=== PATIENT | female | born 1995 | race Caucasian/White ===

== ENCOUNTER 2018-09-03 14:08 | Inpatient (IN) | payer MEDICAID ==
[~2018-09-03] VITALS: Ht 157.5 cm; Wt 64.5 kg
[2018-09-03] MEDS ORDERED: QUET100T PO (14:40)
[2018-09-03] MEDS ORDERED: ZOLP10TA7 PO (14:40)
[2018-09-03] MEDS ORDERED: PALI3 PO (14:40)
[2018-09-03] MEDS ORDERED: BENZ0.5T44 PO (14:40)
[2018-09-03] MEDS ORDERED: LITH300C3 PO (14:40)
[2018-09-03] MEDS ORDERED: LITH300T PO (14:41)
[2018-09-03] MEDS ORDERED: SODIUM CHLORIDE 0.9% 1,000 ML IV ONE (15:45)
[2018-09-03] MEDS ORDERED: LORazepam 2 MG/ML VIAL IVP ONE (15:45)
[2018-09-03 16:04] LABS: BASOPHILS % (AUTO) 0.3 % (0.0-2.0); EOSINOPHILS % (AUTO) 0.4 % (1.0-6.0); HEMATOCRIT 38.1 % (36-46); HEMOGLOBIN 12.8 g/dL (12.0-16.0); LYMPHOCYTES # (AUTO) 1.7 K/uL (1.0-4.8); LYMPHOCYTES % (AUTO) 17.3 % (22.0-44.0); MEAN CORPUSCULAR HEMOGLOBIN 27.4 pg (26.0-34.0); MEAN CORPUSCULAR HGB CONC 33.6 G/dL (31.0-37.0); MEAN CORPUSCULAR VOLUME 82 fL (80-100); MONOCYTES # (AUTO) 0.7 K/uL (0.1-1.0); MONOCYTES % (AUTO) 7.4 % (2.0-9.0); NEUTROPHILS # (AUTO) 7.4 K/uL (1.8-7.7); NEUTROPHILS % (AUTO) 74.6 % (40.0-70.0); PLATELET COUNT (AUTO) 275 K/uL (150-450); RED BLOOD CELL COUNT(AUTO) 4.67 MIL/uL (4.00-5.20)
[2018-09-03 16:10] LABS: ANION GAP 6 mmol/L (8-16); CARBON DIOXIDE 32 mmol/L (22-29); CHLORIDE 104 mmol/L (98-107); CREATININE 0.86 mg/dL (0.60-1.30); GLOMERULAR FILTR. RATE CALC > 60 mL/min (>60); GLUCOSE,RANDOM 85 mg/dL (70-110); POTASSIUM 3.7 mmol/L (3.5-5.1); SODIUM SERUM 142 mmol/L (136-145); UREA NITROGEN, BLOOD 11 mg/dL (7-18)
[2018-09-03 16:25] LABS: ALANINE AMINOTRANSFERASE 26 U/L (12-78); ALBUMIN 4.1 g/dL (3.4-5.0); ALKALINE PHOSPHATASE 72 U/L (46-116); ASPARTATE AMINOTRANSFERASE 17 U/L (15-37); BILIRUBIN,TOTAL 0.2 mg/dL (0.1-1.0); HCG,QUANTITATIVE < 1 mIU/mL (0-6); THYROID STIMULATING HORMONE 1.69 uIU/mL (0.36-3.74); TOTAL PROTEIN, SERUM 7.6 g/dL (6.4-8.2)
[2018-09-03 16:32] LABS: APPEARANCE,URINE CLOUDY (CLEAR); BILIRUBIN,URINE NEGATIVE (NEGATIVE); GLUCOSE, URINE (UA) NEGATIVE (NEGATIVE); KETONES,URINE NEGATIVE (NEGATIVE); LEUKOCYTE ESTERASE ,URINE NEGATIVE (NEGATIVE); NITRATE,URINE NEGATIVE (NEGATIVE); OCCULT BLOOD,URINE NEGATIVE (NEGATIVE); PH,URINE 7.5 (5.0-8.0); PROTEIN,URINE NEGATIVE (NEGATIVE); UROBILINOGEN,URINE 0.2 mg/dL (<=1.0)
[2018-09-03 16:36] LABS: AMPHET/METH SCREEN,URINE NEGATIVE (NEGATIVE); BARBITURATE SCREEN, URINE NEGATIVE (NEGATIVE); BENZODIAZEPINES SCREEN,URINE NEGATIVE (NEGATIVE); CANNABINOID SCREEN,URINE NEGATIVE (NEGATIVE); COCAINE SCREEN,URINE NEGATIVE (NEGATIVE); METHADONE SCREEN, URINE NEGATIVE (NEGATIVE); OPIATE SCREEN,URINE NEGATIVE (NEGATIVE); PHENCYCLIDINE SCREEN,URINE NEGATIVE (NEGATIVE)
[2018-09-03] MEDS ORDERED: ZOLPIDEM TARTRATE 10 MG TABLET PO PRN (17:45)
[2018-09-03] MEDS ORDERED: KETOROLAC TROMETHAMINE 30 MG/ML VIAL IVP ONE (19:00)
[2018-09-03 20:37] VITALS: BP 133/77
[2018-09-03] MEDS: HALOPERIDOL 5 MG TABLET PO PRN (21:00)
[2018-09-03] MEDS: LORazepam 2 MG TABLET PO PRN (21:00)
[2018-09-03] MEDS ORDERED: LOPERAMIDE HCL 2 MG CAPSULE PO PRN (22:30)
[2018-09-03] MEDS ORDERED: NICOTINE 14 MG/24 HOUR PATCH TD PRN (22:30)
[2018-09-03] MEDS ORDERED: DOCUSATE SODIUM 100 MG CAPSULE PO PRN (22:30)
[2018-09-03] MEDS ORDERED: PETROLATUM,WHITE 28 GM JELLY TP PRN (22:30)
[2018-09-03] MEDS ORDERED: ALBUTEROL SULFATE HFA 90 MCG/PUFF 8 GM INHALER IH PRN (22:30)
[2018-09-03] MEDS ORDERED: ONDANSETRON HCL 4 MG TABLET PO PRN (22:30)
[2018-09-03] MEDS ORDERED: IBUPROFEN 400 MG TABLET PO PRN (22:30)
[2018-09-03] MEDS ORDERED: ACETAMINOPHEN 325 MG TABLET PO PRN (22:30)
[2018-09-03] MEDS ORDERED: GuaiFENesin/D-METHORPHAN [SUGAR-FREE] 200-20MG/10 ML SYRUP UDCUP PO PRN (22:30)
[2018-09-03] MEDS ORDERED: MAG HYDROX/AL HYDROX/SIMETH ES 30 ML SUSPENSION UDCUP PO PRN (22:30)
[2018-09-03] MEDS ORDERED: CloNIDine HCL 0.1 MG TABLET PO PRN (22:30)
[2018-09-03] MEDS ORDERED: MAGNESIUM HYDROXIDE SUSPENSION 30 ML UDCUP PO PRN (22:30)
[2018-09-04 06:15] VITALS: BP 114/63
[2018-09-04] MEDS: HALOPERIDOL 5 MG TABLET PO PRN ×2 (08:05→12:10)
[2018-09-04] MEDS: LORazepam 2 MG TABLET PO PRN ×2 (08:05→12:10)
[2018-09-04] MEDS: LITHIUM CARBONATE 300 MG CAPSULE PO SCH ×2 (09:25→17:15)
[2018-09-04 16:00] VITALS: BP 128/75
[2018-09-04] MEDS: QUEtiapine FUMARATE 200 MG TABLET PO SCH (21:17)
[2018-09-05 01:16] VITALS: BP 116/68
[2018-09-05] MEDS: LITHIUM CARBONATE 300 MG CAPSULE PO SCH ×2 (08:17→16:30)
[2018-09-05 08:38] VITALS: BP 114/65
[2018-09-05] MEDS: BENZTROPINE MESYLATE 0.5 MG TABLET PO SCH (09:34)
[2018-09-05] MEDS: PALIPERIDONE 6 MG ER TABLET PO SCH (09:34)
[2018-09-05] MEDS: LORazepam 2 MG TABLET PO PRN (10:53)
[2018-09-05 16:20] VITALS: BP 118/65
[2018-09-05] MEDS: QUEtiapine FUMARATE 200 MG TABLET PO SCH (20:14)
[2018-09-06 00:03] VITALS: BP 100/60
[2018-09-06 08:40] VITALS: BP 128/79
[2018-09-06] MEDS: LORazepam 2 MG TABLET PO PRN (08:48)
[2018-09-06] MEDS: LITHIUM CARBONATE 300 MG CAPSULE PO SCH ×2 (08:48→16:05)
[2018-09-06] MEDS: PALIPERIDONE 6 MG ER TABLET PO SCH (08:51)
[2018-09-06] MEDS: BENZTROPINE MESYLATE 0.5 MG TABLET PO SCH (08:51)
[2018-09-06] MEDS: HALOPERIDOL 5 MG TABLET PO PRN (10:00)
[2018-09-06 16:19] VITALS: BP 131/63
[2018-09-06] MEDS: QUEtiapine FUMARATE 200 MG TABLET PO SCH (20:40)
[2018-09-07 05:58] VITALS: BP 115/75
[2018-09-07 08:20] VITALS: BP 134/63
[2018-09-07] MEDS: LITHIUM CARBONATE 300 MG CAPSULE PO SCH ×2 (08:52→16:02)
[2018-09-07] MEDS: BENZTROPINE MESYLATE 0.5 MG TABLET PO SCH (08:52)
[2018-09-07] MEDS: PALIPERIDONE 6 MG ER TABLET PO SCH (08:52)
[2018-09-07] MEDS: LORazepam 2 MG TABLET PO PRN ×2 (11:51→17:45)
[2018-09-07] MEDS: BENZTROPINE MESYLATE 1 MG TABLET PO SCH ×2 (11:51→16:02)
[2018-09-07 15:35] VITALS: BP 114/66
[2018-09-07] MEDS: QUEtiapine FUMARATE 200 MG TABLET PO SCH (20:24)
[2018-09-08 06:38] VITALS: BP 122/56
[2018-09-08 08:19] VITALS: BP 126/54
[2018-09-08] MEDS: BENZTROPINE MESYLATE 1 MG TABLET PO SCH (08:24)
[2018-09-08] MEDS: LITHIUM CARBONATE 300 MG CAPSULE PO SCH ×2 (08:25→16:21)
[2018-09-08] MEDS: LORazepam 2 MG TABLET PO PRN ×2 (08:25→12:33)
[2018-09-08] MEDS: PALIPERIDONE 6 MG ER TABLET PO SCH (08:27)
[2018-09-08] MEDS: BENZTROPINE MESYLATE 2 MG TABLET PO SCH (16:21)
[2018-09-08 16:24] VITALS: BP 110/67
[2018-09-08] MEDS: QUEtiapine FUMARATE 200 MG TABLET PO SCH (20:31)
[2018-09-09 00:37] VITALS: BP 114/65
[2018-09-09] MEDS: LORazepam 2 MG TABLET PO PRN (08:21)
[2018-09-09] MEDS: LITHIUM CARBONATE 300 MG CAPSULE PO SCH (08:21)
[2018-09-09] MEDS: BENZTROPINE MESYLATE 2 MG TABLET PO SCH (08:21)
[2018-09-09] MEDS: PALIPERIDONE 6 MG ER TABLET PO SCH (08:23)
[2018-09-09 08:26] VITALS: BP 129/74
[2018-09-09] MEDS ORDERED: LITH300C3 PO (11:32)
[2018-09-09] MEDS ORDERED: BENZ2TAB10 PO (11:32)
[2018-09-09] MEDS ORDERED: QUET200T PO (11:32)
[2018-09-09] MEDS ORDERED: PALI6 PO (11:32)
== END 2018-09-09 14:00 | DRG 750 ==
LOC: EMS 14:08 → B3A 18:06
PROVIDERS: ADMIT Psychiatry & Neurology Child & Adolescent Psychiatry; ATTEND Psychiatry & Neurology Child & Adolescent Psychiatry
DX: F25.0 Schizoaffective disorder, bipolar type (principal); F10.10 Alcohol abuse, uncomplicated; F15.90 Other stimulant use, unspecified, uncomplicated; F17.200 Nicotine dependence, unspecified, uncomplicated; F90.9 Attention-deficit hyperactivity disorder, unspecified type; G89.29 Other chronic pain; Z79.899 Other long term (current) drug therapy; Z81.8 Family history of other mental and behavioral disorders; F41.9 Anxiety disorder, unspecified; M54.9 Dorsalgia, unspecified; Z71.41 Alcohol abuse counseling and surveillance of alcoholic; Z71.6 Tobacco abuse counseling; R10.13 Epigastric pain
CPT/HCPCS: 84443; 96374; 96375; G0480; J1885; J2060; J7030